=== PATIENT | female | born 1945 | race Caucasian/White ===

== ENCOUNTER → 2016-12-26 | Outpatient (CLI) | payer OTHER ==
[~2016-12-26] MED LIST: AMBIEN 5 MG TABL5 M1 PO; JANUVIA25 MG PO; LEVAQUIN 250 M250 MG PO; LEXAPRO 10 MG T10 M1 PO; LISINOPRIL10 MG PO; NEXIUM40 MG PO; PIOGLITAZONE15 MG; PREDNISONE 10 M10 MG PO; SIMVASTATIN40 MG PO; VICTOZA0.6 MG/0.1 SUBQ; XANAX 0.25 MG0.25 MG PO
== END ==
LOC: NUC 10-03 10:10
DX: N95.9 Unspecified menopausal and perimenopausal disorder (principal); N91.2 Amenorrhea, unspecified